=== PATIENT | female | born 1950 | race Caucasian/White ===

== ENCOUNTER → 2019-02-05 | Day surgery (SDC) | payer MEDICARE, OTHER ==
--- NOTE | 2019-02-05 07:59 | PCM.PREANE ---
Preanesthetic Assessment - Anesthesia/Transfusion/Family Hx Anesthesia History: Prior Anesthesia Without Reaction Family History of Anesthesia Reaction: No Transfusion History: Prior Transfusion Reaction Type of Transfusion Reactions: Reports: Hives Intubation History: Unknown - Review of Systems General: No Symptoms Pulmonary: No Symptoms Cardiovascular: No Symptoms Gastrointestinal: No Symptoms Neurological: No Symptoms Other: Reports: None - Physical Assessment NPO Status Date: 02/04/19 NPO Status Time: 19:00 ASA Class: 1 Mental Status: Alert & Oriented x3 Airway Class: Mallampati = 2 Dentition: Reports: Normal Dentition Thyro-Mental Finger Breadths: 3 Mouth Opening Finger Breadths: 3 ROM/Head Extension: Full Lungs: Clear to Auscultation, Normal Respiratory Effort Cardiovascular: Regular Rate, Regular Rhythm - Allergies Allergies/Adverse Reactions: Allergies Allergy/AdvReac Type Severity Reaction Status Date / Time amoxicillin [From Augmentin] Allergy Other Verified 02/04/19 16:09 clavulanic acid Allergy Other Verified 02/04/19 16:09 [From Augmentin] doxycycline Allergy Other Verified 02/04/19 16:09 peanut Allergy Other Verified 02/04/19 16:09 - Acknowledgements Anesthesia Type Planned: MAC Pt an Appropriate Candidate for the Planned Anesthesia: Yes Alternatives and Risks of Anesthesia Discussed w Pt/Guardian: Yes Pt/Guardian Understands and Agrees with Anesthesia Plan: Yes PreAnesthesia Questionnaire HEENT History: Reports: Cataract Cardiovascular History: Reports: High Cholesterol Respiratory History: Reports: None Gastrointestinal History: Reports: Irritable Bowel Syndrome Genitourinary History: Reports: None Musculoskeletal History: Reports: None Neurological History: Reports: None Psychiatric History: Reports: None Endocrine/Metabolic History: Reports: None - Past Surgical History HEENT Surgical History: Reports: Cataract Surgery, Tonsillectomy GI Surgical History: Reports: Colonoscopy Female Surgical History: Reports: Breast Biopsy, Hysterectomy Endocrine Surgical History: Reports: Parathyroidectomy - SUBSTANCE USE Smoking Status *Q: Never Smoker - HOME MEDS Home Medications: Home Meds Aspirin [Halfprin] 81 mg PO DAILY 01/07/19 [History] Cholecalciferol (Vitamin D3) [Vitamin D3] 2,000 unit PO DAILY 01/07/19 [History] Colesevelam [Welchol] 625 mg PO DAILY 01/07/19 [History] Zinc Acetate [Galzin] 50 mg PO TID 11/18/19 [History] - CURRENT (IN HOUSE) MEDS Current Meds: Current Medications Brimonidine Tartrate (Alphagan 0.2% Ophth Soln) 0 ml EYERT ASDIRECTED MARTIN Stop: 02/05/19 18:00 Cefuroxime Sodium (Zinacef) 0 mg EYERT ASDIRECTED MARTIN Stop: 02/05/19 18:00 Lidocaine HCl (Xylocaine-Mpf 1%) 1 ml INJECT ASDIRECTED MARTIN Stop: 02/05/19 18:00 Phenylephrine HCl (Eron-Synephrine 2.5% Ophth Soln) 0 ml EYERT ASDIRECTED MARTIN Stop: 02/05/19 18:00 Pilocarpine HCl (Pilocar 4% Ophth Soln) 0 ml EYERT ASDIRECTED MARTIN Stop: 02/05/19 18:00 Polymyxin/Trimethoprim Sulfate (Polytrim Ophth Soln) 0 ml EYERT ASDIRECTED MARTIN Stop: 02/05/19 18:00 Tetracaine HCl (Tetracaine 0.5% Steri-Unit Triny) 0 ml EYERT ASDIRECTED MARTIN Stop: 02/05/19 18:00 Tropicamide (Mydriacyl 1% Ophth Soln) 0 ml EYERT ASDIRECTED MARTIN Stop: 02/05/19 18:00
[2019-02-05] MEDS: Polymyxin B/Trimethoprim 10 ML Bottle EYERT SCH ×4 (08:22→10:31)
[2019-02-05] MEDS: Brimonidine 0.2% Ophth Soln 5 ML Bottle EYERT SCH ×5 (08:27→10:31)
[2019-02-05] MEDS: Phenylephrine 2.5% Ophth Soln 2 ML Bot EYERT SCH ×6 (08:32→10:20)
[2019-02-05] MEDS: Tropicamide 1% Ophth Soln 15 ML Bottle EYERT SCH ×4 (08:39→09:42)
[2019-02-05] MEDS: Lidocaine 1% PF 2 ML SDV INJECT SCH ×2 (09:27→10:20)
[2019-02-05] MEDS: Tetracaine HCl/PF 0.5% 4 ML Bottle EYERT SCH ×3 (09:27→10:21)
[2019-02-05] MEDS: Cefuroxime 10 MG/ML SYRINGE EYERT SCH ×2 (09:28→10:30)
[2019-02-05] MEDS: Pilocarpine 4% Ophth Soln 15 ML Bot EYERT SCH ×2 (09:29→10:31)
--- NOTE | 2019-02-05 10:33 | PCM48HPAN ---
Post Anesthesia Note - EVALUATION WITHIN 48HRS OF ANESTHETIC Vital Signs in Normal Range: Yes Patient Participated in Evaluation: Yes Respiratory Function Stable: Yes Airway Patent: Yes Cardiovascular Function Stable: Yes Hydration Status Stable: Yes Pain Control Satisfactory: Yes Nausea and Vomiting Control Satisfactory: Yes Mental Status Recovered: Yes Vital Signs: Last Vital Signs Temp 36.2 C 02/05/19 07:45 Pulse 56 L 02/05/19 07:45 Resp 16 02/05/19 07:45 BP 124/56 L 02/05/19 07:45 Pulse Ox 98 02/05/19 07:45
== END ==
LOC: JD.SDS 07:12
PROVIDERS: ATTEND Ophthalmology
DX: H25.811 Combined forms of age-related cataract, right eye (principal); H11.823 Conjunctivochalasis, bilateral; H31.092 Other chorioretinal scars, left eye; E78.00 Pure hypercholesterolemia, unspecified; K58.9 Irritable bowel syndrome, unspecified; Z98.42 Cataract extraction status, left eye; Z96.1 Presence of intraocular lens; Z83.511 Family history of glaucoma; Z83.518 Family history of other specified eye disorder; Z79.82 Long term (current) use of aspirin; Z79.899 Other long term (current) drug therapy
CPT/HCPCS: 66984; J0697; J2001